=== PATIENT | female | born 1965 ===

== ENCOUNTER 2022-07-25 10:18 | Outpatient (CLI) | payer OTHER | END 2022-07-25 10:20 | disposition home or self-care (01) | LOC: SONOGRAMA 10:18 | PROVIDERS: ATTEND Pathology Anatomic Pathology & Clinical Pathology | DX: D34 Benign neoplasm of thyroid gland (principal); E04.9 Nontoxic goiter, unspecified; E21.0 Primary hyperparathyroidism ==

== ENCOUNTER 2022-09-18 05:56 | Day surgery (SDC) | payer OTHER ==
[~2022-09-18 05:56] MED LIST: ABILIFY20 MG PO; ATIVAN1 M1 PO; D & C GREEN #61 GM; LITHOBID300 M1 PO; RESTORIL30 M1 PO; TRAZODONE HCL150 MG PO; VITAMIN C500 M6 PO; ZETIA10 MG PO; [UNRECOGNIZED DRUG - OTHER] PO
[2022-09-18] MEDS ORDERED: PERCOCET 5-3251 EACH PO (11:07)
== END 2022-09-18 15:20 | disposition home or self-care (01) ==
LOC: CIR.AMB 05:56
PROVIDERS: ATTEND Surgery
DX: D35.1 Benign neoplasm of parathyroid gland (principal); E21.0 Primary hyperparathyroidism; E04.1 Nontoxic single thyroid nodule; Z20.822 Contact with and (suspected) exposure to COVID-19